=== PATIENT | male | born 1955 | race Caucasian/White ===

== ENCOUNTER 2022-02-22 13:28 | Emergency (ER) | payer MEDICARE ==
[2022-02-22] MEDS ORDERED: Lidocaine 1% with EPINEPHrine 1:100,000 20 ML MDV INJECT ONE (14:33)
== END 2022-02-22 15:28 | disposition home or self-care (01) ==
LOC: JD.ED 13:28
DX: S61.511A Laceration without foreign body of right wrist, initial encounter (principal); Z86.16 Personal history of COVID-19; Z88.0 Allergy status to penicillin; Z90.49 Acquired absence of other specified parts of digestive tract; W28.XXXA Contact with powered lawn mower, initial encounter
CPT/HCPCS: 12001; 99282

== ENCOUNTER 2022-05-12 06:20 | Day surgery (SDC) | payer MEDICARE, OTHER ==
[~2022-05-12 06:20] MED LIST: Acetaminophen 325 MG Tab PO SCH; Lactated Ringers 1,000 ML IV SCH; Lidocaine 1% 4 ML ONE; Lidocaine 1%/Sod Bicarbonate in NS 8.4% 1 ML Syringe IDERM PRN; Midazolam 1 MG/ML 2 ML SDV ONE; Ondansetron 4 MG/2 ML SDV ONE; Pregabalin 25 MG Cap PO SCH; Propofol 200 MG/20 ML SDV ONE; Sodium Chloride 0.9% 10 ML Syringe FLUSH PRN; Sodium Chloride 0.9% 10 ML Syringe FLUSH SCH; oxyCODONE ER 10 MG TAB.ER PO SCH
[2022-05-12] MEDS ORDERED: fentaNYL 100 MCG/2 ML SDV ONE (07:50)
[2022-05-12] MEDS ORDERED: Phenylephrine HCl In 0.9% NaCl 1 MG/10 ML Vial ONE (07:50)
[2022-05-12] MEDS: Vancomycin 1 GM SDV ONE ×2 (08:00→09:22)
[2022-05-12] MEDS: Morphine 8 MG, EPINEPHrine 0.3 MG, Cefuroxime 750 MG, Ketorolac 30 MG, Sodium Chloride ... PRN ×10 (08:06→09:15)
[2022-05-12] MEDS ORDERED: Propofol 200 MG/20 ML SDV ONE ×2 (08:11→08:56)
[2022-05-12] MEDS ORDERED: ePHEDrine 50 MG/ML SDV ONE (08:24)
[2022-05-12] MEDS ORDERED: ceFAZolin 2 GM Vial ONE (08:30)
[2022-05-12] MEDS ORDERED: Ondansetron 4 MG/2 ML SDV ONE (09:14)
[2022-05-12] MEDS ORDERED: Ropivacaine 0.5% 5 MG/ML 30 ML SDV ONE (09:56)
[2022-05-12] MEDS ORDERED: EPINEPHrine 1 MG/ML SDV ONE (09:56)
[2022-05-12] MEDS ORDERED: oxyCODONE 5 MG Tab PO ONE (10:23)
== END 2022-05-12 13:35 | disposition home or self-care (01) ==
LOC: JD.SDS 06:20
PROVIDERS: ATTEND Orthopaedic Surgery
DX: T84.84XA Pain due to internal orthopedic prosthetic devices, implants and grafts, initial encounter (principal); I10 Essential (primary) hypertension; E78.5 Hyperlipidemia, unspecified; K21.9 Gastro-esophageal reflux disease without esophagitis; G47.33 Obstructive sleep apnea (adult) (pediatric); F17.210 Nicotine dependence, cigarettes, uncomplicated; Z79.899 Other long term (current) drug therapy; Z88.0 Allergy status to penicillin; Z98.1 Arthrodesis status; Z88.8 Allergy status to other drugs, medicaments and biological substances; Z90.49 Acquired absence of other specified parts of digestive tract; Z98.890 Other specified postprocedural states; Z86.16 Personal history of COVID-19; Z96.659 Presence of unspecified artificial knee joint
CPT/HCPCS: 27487; 73560; 97110; 97116; 97161; A9270; C1713; C1776; J0171; J0690; J0697; J1885; J2250; J2270; J2405; J2704; J2795; J3010; J3370; J7120; 01402; 64450; 76942